=== PATIENT | male | born 2000 | race Caucasian/White ===

== ENCOUNTER 2021-05-21 07:07 | Day surgery (SDC) | payer SELFPAY ==
[~2021-05-21] VITALS: Ht 182.9 cm; Wt 73.7 kg
[2021-05-21 07:54] VITALS: BP 124/75; PULSE 89
[2021-05-21] MEDS ORDERED: THERAGRAN TAB1 UDTAB PO (07:58)
[2021-05-21] MEDS ORDERED: VITAMIND3 5000 PO (08:23)
[2021-05-21] MEDS ORDERED: VITAMIN K0.1 MG (08:24)
[2021-05-21 09:55] VITALS: BP 107/76; PULSE 72; TEMP 97.6
--- NOTE | 2021-05-21 09:55 | NUR ---
Patient returned to [facility] via cart, transfered to chair with steady gait. Postop vital signs started. Patient agreed to try appl juice and vanilla pudding. Will continue to monitor.
--- NOTE | 2021-05-21 10:02 | NUR ---
Phisician in to speak with patient.
[2021-05-21 10:10] VITALS: BP 114/85; PULSE 72
--- NOTE | 2021-05-21 10:10 | NUR ---
Patient sittingup in chair, denies discomfort. Vital signs are stable, tolerating food and drink well. Will continue to monitor. Friend brought back from waiting room.
[2021-05-21 10:25] VITALS: BP 101/71; PULSE 66
--- NOTE | 2021-05-21 10:25 | NUR ---
Patient sitting up in chair, denies discomfort. Vital signs stable. Reviewed discharge instructions and education materials with patient, verbalized understanding. D/C IV with no complications. Instructed patient to dress and then call out for transportaion.
--- NOTE | 2021-05-21 10:30 | NUR ---
Tranfered patient via wheel chair to friends personal vehicle for ride home.
--- NOTE | 2021-05-24 10:45 | NUR ---
1030-Notified that patient has a positive COVID test from Monday05-21-21. Called and spoke with patient and he reports having COVID in late February around the . He reports being very sick and symptomatic during that time. He denies having any symptoms at present. Notified Arabella, Infection Control Nurse for the hosptial, and she has been in contact with the [facility] regarding this patient and the positive result. Informed the patient that the [facility] will be contacting him today to further discuss this and determine if quarantine is necessary or not. Dr. Sánchez is also aware of this positive result.
== END 2021-05-21 10:30 | disposition home or self-care (01) ==
LOC: SDCO 07:07
DX: K62.89 Other specified diseases of anus and rectum (principal); K59.00 Constipation, unspecified; K64.4 Residual hemorrhoidal skin tags; Z20.822 Contact with and (suspected) exposure to COVID-19; M53.3 Sacrococcygeal disorders, not elsewhere classified
CPT/HCPCS: J2704; J7030